=== PATIENT | female | born 1980 | race Caucasian/White ===

== ENCOUNTER 2016-08-15 20:52 | Inpatient (IN) | payer OTHER ==
--- NOTE | ~2016-08-15 | PA ---
Unit #: [id number] #: [id number] Patient: KERRY CASTRO [id number] [place] [address] [id number] I MR#: [id number] NAME: KERRY CASTRO ROOM: P183 Age: 35 Sex: F Admission Date: 08/15/2016 : 1980 Date of Assessment: 08/15/2016 Attending Physician: Sanjay Crum M.D. Admitting Physician: Sanjay Crum M.D. Primary Care Physician: Primary Care Physician No PSYCHIATRIC ASSESSMENT INFORMANTS Patient, reliable; [facility], reliable. CHIEF COMPLAINT Detox. HISTORY OF PRESENT ILLNESS Kerry is a 35-year-old woman, who reports she has been using increasing amounts of benzodiazepines up to two 8 mg of alprazolam daily and is also tested positive for methamphetamines and cocaine in the emergency room. She is an IV user of drugs and also reports she is on Suboxone maintenance. She was unable to contract for safety and was admitted for polysubstance detox. PAST PSYCHIATRIC HISTORY The patient reports she has had multiple episodes of detox in [facility]. She has no current psychiatric provider, but takes Celexa 40 mg daily from her Suboxone provider. She also takes Suboxone 16 mg daily for chemical dependence. FAMILY PSYCHIATRIC HISTORY None reported. SOCIAL HISTORY The patient has a bachelor's degree, but is unemployed. She lives with her and 2 sons and reports that she has many friends who have heroin problems. PAST MEDICAL HISTORY The patient has a history of withdrawal seizures and hepatitis C. MEDICATIONS None except as noted above. ALLERGIES Penicillin and sulfadiazine. SUBSTANCE USE HISTORY As described above. MENTAL STATUS EXAMINATION The patient presented as a mildly disheveled woman, who appeared her stated age. She stood 5 feet 5 inches tall, weighed 114 pounds. Vital Unit #: [id number] #: [id number] Patient: KERRY CASTRO signs; temperature 98.1, pulse 58, respirations 20, and blood pressure 171/97. Her speech was soft, sparse, but easily understood. Her musculoskeletal examination demonstrated mild psychomotor agitation. Her mood was anxious with a congruent affect. She was alert and fully oriented. Her memory and concentration were intact. Her thought processes were logical with no psychosis. She denied suicidal ideation, intent, or plan. Insight and judgment, fair. Fund of knowledge and abstraction, fair. ASSETS AND LIABILITIES The patient knows local resources and presents voluntarily for treatment. She has supportive family and is employable. Liabilities include lack of ability to maintain sobriety despite Suboxone maintenance. ADMITTING DIAGNOSES AXIS I: Benzodiazepine dependence with withdrawal, uncomplicated, F15.230; opioid dependence, F11.20. AXIS II: No diagnosis. AXIS III: History of hepatitis C, history of withdrawal seizures. AXIS IV: AXIS V: PSYCHIATRIC PLAN The patient was admitted and placed on the benzodiazepine detox protocol with the addition of Neurontin for possible opioid detox symptomatology. Citalopram was continued with the addition of trazodone as needed for insomnia, but her Suboxone was discontinued. She will enroll in dual diagnosis groups and activities. TREATMENT GOALS Establishment of sobriety, improvement in insight, and improvement in coping skills. DISCHARGE PLAN Follow up with [facility]. ESTIMATED LENGTH OF STAY 5 days. Dictated by... Sanjay Crum M.D. [facility]/rosie TD: 08/19/2016 03:01 JOB #: [id number] Unit #: [id number] #: [id number] Patient: KERRY CASTRO PSYCHIATRIC ASSESSMENT Page 1 of 1 X Sanjay Crum MD X PSYCHIATRIC ASSESSMENT
--- NOTE | ~2016-08-15 | DS ---
Unit #: [id number] #: [id number] Patient: KERRY CASTRO [id number] [place] [address] [id number] MR#: [id number] NAME: KERRY CASTRO ROOM: 83 Age: 35 Sex: F Admission Date: 08/15/2016 : 1980 Discharge Date: 08/19/2016 Attending Physician: Sanjay Crum M.D. Primary Care Physician: Primary Care Physician No DISCHARGE SUMMARY REASON FOR ADMISSION Kerry is a 35-year-old woman, referred by [facility] for an episode of benzodiazepine, amphetamine, and cocaine abuse. She was admitted for polysubstance detox. DIAGNOSTIC STUDIES LABORATORY RESULTS: Please see hospital chart. HOSPITAL COURSE The patient was admitted and placed on the benzodiazepine detox protocol with the addition of Neurontin for possible opioid detox symptoms. Citalopram and trazodone were continued. The Suboxone was discontinued. She did enroll in dual diagnosis groups and activities and had some episodes of agitation, but was generally cooperative. The patient was agreeable to a referral and she was referred to [facility]. She was generally calm and cooperative, and on the date of discharge, she was improved with the ability to contract for safety in the outpatient setting. DISCHARGE DIAGNOSES AXIS I: Benzodiazepine dependence; amphetamine abuse; opioid abuse; depressive disorder, not otherwise specified. AXIS II: No diagnosis. AXIS III: None. AXIS IV: AXIS V: DISCHARGE INSTRUCTIONS Follow up with chemical dependency programing of the patient's choice and primary care physician. DISCHARGE MEDICATIONS Celexa 40 mg daily for depression. CONDITION AT DISCHARGE Improved. PROGNOSIS Fair to good. DIET AND ACTIVITY Per primary care doctor. Unit #: [id number] #: [id number] Patient: KERRY CASTRO Dictated by... Sanjay Crum M.D. [facility]/modl TD: 10/08/2016 20:38 JOB #: [id number] DISCHARGE SUMMARY Page 1 of 1 X Sanjay Crum MD X DISCHARGE SUMMARY
--- NOTE | ~2016-08-15 | HP ---
Unit #: [id number] #: [id number] Patient: EUNICE CASTRO [id number] [place] [address] [id number] MR#: [id number] NAME: EUNICE CASTRO ROOM: P183 Age: 35 Sex: F Admission Date: 08/15/2016 : 1980 Attending Physician: Sanjay Crum M.D. Admitting Physician: Sanjay Crum M.D. Primary Care Physician: Primary Care Physician No HISTORY AND PHYSICAL HISTORY OF PRESENT ILLNESS Eunice is a 35 year old admitted to [facility] because of her polysubstance abuse which includes opioids, methamphetamine and benzodiazepines. PAST MEDICAL HISTORY 1. Long history of poly illicit substance abuse. 2. History of withdrawal seizures. 3. History of IV drugs. 4. Hepatitis C. PAST SURGICAL HISTORY Tubal ligation. ALLERGIES Penicillin, sulfa. SOCIAL HISTORY She denies cigarettes and alcohol. Admits to long history of poly illicit substance abuse to include IV drugs. FAMILY HISTORY Medically noncontributory. REVIEW OF SYSTEMS CONSTITUTIONAL: No fever or chills. HEENT: Denies any sore throat, ear pain or runny nose. CARDIOVASCULAR: Denies chest pain, irregular heart rhythm or palpitations. CHEST: Denies shortness of breath or cough. No hemoptysis. GASTROINTESTINAL: Denies nausea, vomiting, diarrhea or chronic constipation. ENDOCRINE: Denies history of increased thirst or urination. No recent significant weight loss or gain. GENITOURINARY: Denies dysuria, frequency, or hematuria. SKIN: Denies any rashes. HEMATOLOGIC: Denies history of increased bleeding or bruising. MUSCULOSKELETAL: Denies any hot, swollen joints. No generalized muscle pain. NEUROLOGIC: Denies problems with vision or speech. No frequent, severe headaches. No numbness, tingling or weakness in any extremities. Denies loss of bladder or bowel control. Unit #: [id number] #: [id number] Patient: EUNICE CASTRO CURRENT MEDICATIONS 1. Detox protocol 2. Celexa 40 mg daily PHYSICAL EXAMINATION GENERAL: Alert, well-nourished, in no apparent distress. VITAL SIGNS: Blood pressure 120/78, heart rate 80, respirations 16, temperature 98.6. WEIGHT: 114 pounds. HEIGHT: 5'5". SKIN: Warm and dry without rash or lesion. HEENT: Normocephalic. TMs not viewed. Oral and nasal passages clear. Conjunctivae clear. Pupils equal, round and reactive to light and accommodation. Extraocular movements intact. NECK: Supple without lymphadenopathy or thyromegaly. HEART: Regular rate and rhythm without murmur. LUNGS: Clear. ABDOMEN: Soft, nontender. : Not done. EXTREMITIES: No evidence of cyanosis, clubbing or edema. Moves all extremities without focal deficit. NEUROLOGICAL: Grossly within normal limits. Cranial Nerves: II: Visual winston are intact. III, IV AND : Extraocular movements are intact. Pupils are equal, round and reactive to light. V: Facial sensation is grossly normal. VII: Facial movements and expression are normal. VIII: Auditory acuity grossly intact. IX, X: Uvula is midline. Phonation is normal. XI: Patient shrugs shoulders and turns head normally. XII: Tongue protrudes in the midline. Sensory and Motor Function: Sensory and motor sensation is grossly normal. Motor: moves all extremities well. Coordination: Gait is normal. Deep Tendon Reflexes: Intact. IMPRESSION Psychiatric admission RECOMMENDATIONS PSYCHIATRIC: Per psychiatrist. MEDICAL: I see no contraindications to participating in facility's activities. MEDICAL PROGNOSIS Good. MEDICAL CONDITION Stable. Dictated by... Bernie Iverson P.A.-C. for Benjamin Ty/jalen Unit #: [id number] #: [id number] Patient: EUNICE CASTRO TD: 08/16/2016 21:30 JOB #: [id number] HISTORY AND PHYSICAL Page 1 of 1 X Bernie Iverson HISTORY AND PHYSICAL
--- NOTE | ~2016-08-15 | DS ---
Unit #: [id number] #: [id number] Patient: KERRY CASTRO [id number] [place] [address] [id number] I MR#: [id number] NAME: KERRY CASTRO ROOM: 83 Age: 35 Sex: F Admission Date: 08/15/2016 : 1980 Discharge Date: 08/19/2016 Attending Physician: Sanjay Crum M.D. Primary Care Physician: Primary Care Physician No DISCHARGE SUMMARY REASON FOR ADMISSION Kerry is a 35-year-old woman with increasing drug use recently including benzodiazepines, methamphetamines, and cocaine. The patient is also on Suboxone maintenance. She was admitted for detox. HOSPITAL COURSE The patient was admitted and placed on the benzodiazepine detox protocol with the addition of Neurontin for possible opioid detox symptoms. Citalopram and trazodone were continued, but Suboxone was discontinued. She enrolled in psychotherapy groups and activities, but was irritable and a poor participant, frequently demanding the re-initiation of her Suboxone, which was clearly not appropriate. On date of discharge, she was free of psychosis. DISCHARGE DIAGNOSES AXIS I: Benzodiazepine dependence with withdrawal; opioid dependence; amphetamine abuse. AXIS II: No diagnosis. AXIS III: History of hepatitis C, history of withdrawal seizures. AXIS IV: AXIS V: DISCHARGE INSTRUCTIONS Follow up with chemical dependence programing in the community. The patient was offered long-term follow up as this was not available at the time of discharge. DISCHARGE MEDICATIONS Celexa 40 mg daily for depression. CONDITION AT DISCHARGE Fair. PROGNOSIS Fair. DIET AND ACTIVITY Ad briana. Dictated by... Sanjay Crum M.D. Unit #: [id number] #: [id number] Patient: KERYR CASTRO MR/modl TD: 10/11/2016 00:22 JOB #: [id number] DISCHARGE SUMMARY Page 1 of 1 X Sanjay Crum MD X DISCHARGE SUMMARY
--- NOTE | ~2016-08-15 | HP ---
Unit #: [id number] #: [id number] Patient: EUNICE CASTRO [id number] [place] [address] [id number] I MR#: [id number] NAME: EUNICE CASTRO ROOM: P183 Age: 35 Sex: F Admission Date: 08/15/2016 : 1980 Attending Physician: Sanjay Crum M.D. Admitting Physician: Sanjay Crum M.D. Primary Care Physician: Primary Care Physician No HISTORY AND PHYSICAL HISTORY OF PRESENT ILLNESS Eunice is a 35 year old admitted to [facility] because of her polysubstance abuse which includes opioids, methamphetamine and benzodiazepines. PAST MEDICAL HISTORY 1. Long history of poly illicit substance abuse. 2. History of withdrawal seizures. 3. History of IV drugs. 4. Hepatitis C. PAST SURGICAL HISTORY Tubal ligation. ALLERGIES Penicillin, sulfa. SOCIAL HISTORY She denies cigarettes and alcohol. Admits to long history of poly illicit substance abuse to include IV drugs. FAMILY HISTORY Medically noncontributory. REVIEW OF SYSTEMS CONSTITUTIONAL: No fever or chills. HEENT: Denies any sore throat, ear pain or runny nose. CARDIOVASCULAR: Denies chest pain, irregular heart rhythm or palpitations. CHEST: Denies shortness of breath or cough. No hemoptysis. GASTROINTESTINAL: Denies nausea, vomiting, diarrhea or chronic constipation. ENDOCRINE: Denies history of increased thirst or urination. No recent significant weight loss or gain. GENITOURINARY: Denies dysuria, frequency, or hematuria. SKIN: Denies any rashes. HEMATOLOGIC: Denies history of increased bleeding or bruising. MUSCULOSKELETAL: Denies any hot, swollen joints. No generalized muscle pain. NEUROLOGIC: Denies problems with vision or speech. No frequent, severe headaches. No numbness, tingling or weakness in any extremities. Denies loss of bladder or bowel control. CURRENT MEDICATIONS 1. Detox protocol Unit #: [id number] #: [id number] Patient: EUNICE CASTRO 2. Celexa 40 mg q day PHYSICAL EXAMINATION GENERAL: Alert, well-nourished, in no apparent distress. VITAL SIGNS: Blood pressure 120/78, heart rate 80, respirations 16, temperature 98.6. WEIGHT: 114 pounds. HEIGHT: 5'5". SKIN: Warm and dry without rash or lesion. HEENT: Normocephalic. TMs not viewed. Oral and nasal passages clear. Conjunctivae clear. Pupils equal, round and reactive to light and accommodation. Extraocular movements intact. NECK: Supple without lymphadenopathy or thyromegaly. HEART: Regular rate and rhythm without murmur. LUNGS: Clear. ABDOMEN: Soft, nontender. : Not done. EXTREMITIES: No evidence of cyanosis, clubbing or edema. Moves all extremities without focal deficit. NEUROLOGICAL: Grossly within normal limits. Cranial Nerves: II: Visual winston are intact. III, IV AND : Extraocular movements are intact. Pupils are equal, round and reactive to light. V: Facial sensation is grossly normal. VII: Facial movements and expression are normal. VIII: Auditory acuity grossly intact. IX, X: Uvula is midline. Phonation is normal. XI: Patient shrugs shoulders and turns head normally. XII: Tongue protrudes in the midline. Sensory and Motor Function: Sensory and motor sensation is grossly normal. Motor: moves all extremities well. Coordination: Gait is normal. Deep Tendon Reflexes: Intact. IMPRESSION Psychiatric admission RECOMMENDATIONS PSYCHIATRIC: Per psychiatrist. MEDICAL: I see no contraindications to participating in facility's activities. MEDICAL PROGNOSIS Good. MEDICAL CONDITION Stable. Dictated by... Bhavin SpanglerASher-Gagan. for Benjamin Ty/jalen TD: 08/17/2016 01:48 JOB #: [id number] Unit #: [id number] #: [id number] Patient: EUNICE CASTRO HISTORY AND PHYSICAL Page 1 of 1 X Bernie Iverson HISTORY AND PHYSICAL
--- NOTE | ~2016-08-15 | A ---
[facility] Nutrition Therapy DATE: 08/16/16 Patient: KERRY CASTRO Physician: CINDY Address: [address] Room/Bed: [address], Zip: [place] [id number] Admit Date: 08/15/16 Date of : [birth year] Height: 5 5 Weight: [phone] NUTRITIONAL ASSESSMENT: REASON: NUTRITIONAL RISK POINT- UNINTENTIONAL WEIGHT LOSS PATIENT ADMITTED FOR POLYSUBSTANCE DETOX PMH: HEPATITIS C, WITHDRAWAL SEIZURES Anthropometrics: HT: 5'5", WT: 114#, BMI: 19, %IBW: 91 Labs: 08/16/16- GLU: 117 Meds: CELEXA, NEURONTIN, DESYREL, DETOX PROTOCOL, ATIVAN Assessment: CHART REVIEWED, EVENTS NOTED. PATIENT IS A 35 Y/O FEMALE ADMITTED FOR POLYSUBSTANCE DETOX. PATIENT IS CURRENTLY UNEMPLOYED, LIVES WITH AND 2 CHILDREN, HAS DAILY XANAX AND SUBOXONE USE, FREQUENT METH AND COCAINE USE, AND OCCASIONAL MARIJUANA USE. PATIENT STATED A POOR APPETITE WITH A 203 WEIGHT LOSS OVER LAST SEVERAL MONTHS, AND SHE HAS NOT BEEN SLEEPING. PATIENT HAS A HX OF INPATIENT CHEMICAL DEPENDENCY TREATMENT. CURRENT PSYCH MEDS MAY CAUSE WEIGHT AND APPETITE FLUCTUATIONS. THIS RD SUSPECTS WEIGHT AND AND APPETITE WILL STABILIZE, AND POSSIBLY INCREASE, FOLLOWING DETOX. THERE ARE CURRENTLY NO SKIN OR GI ISSUES NOTED ATT. PATIENT IS ON A REGULAR DIET WITH NO CAFFEINE. CURRENT PO INTAKES ARE UNAVAILABLE D/T PATIENT RECENTLY ADMITTED TO FACILITY. Dx: INADEQUATE NUTRIENT INTAKE R/T CURRENT CONDITION, DETOX AEB SELF-REPORTED WEIGHT LOSS, DECREASED APPETITE, NUTRITIONAL RISK POINT Intervention: 1. REGULAR DIET, 2. MEDS PER MD, 3. DETOX, 4. PSYCH Monitoring, Evaluation and Goals: 1. ADEQUATE PO INTAKES >50% OF MEALS 2. PREVENT, CORRECT MICRO/MACRO NUTRIENT DEFICIENCIES MONITOR: WEIGHTS, LABS, PO/FLUID INTAKES Recommendations: 1. CONTINUE REGULAR DIET TOLERATED AND OFFER SNACKS BETWEEN MEALS. IF PATIENT HAS C/O HUNGER PLEASE ORDER LARGE PORTION ENTREES AND RD WILL APPROVE. 2. ENCOURAGE ADEQUATE PO AND FLUID INTAKES 3. IF PO INTAKES FALL BELOW 50% OF MEALS PLEASE ORDER ENSURE BID TO PROMOTE ADEQUATE KCAL AND PROTEIN INTAKES. [facility] Nutrition Therapy DATE: 03/27/17 Patient: KERRY CASTRO Physician: CINDY Address: [address] [place] [address] Room/Bed: [address], Zip: [place] [address] Admit Date: 08/15/16 Date of : [birth year] Height: 5 5 Weight: [id number] TO F/U PER PROTOCOL AND PRN R/T PATIENT MILDLY COMPROMISED Respectfully, ANSELMO HORAN RD, LD Food and Nutritional Services [facility] cc: client file
[2016-08-16 12:22] LABS: BASOPHIL% 0.7 % (0-2.5); EOSINOPHIL# 0.1 X10e3 (0-0.7); EOSINOPHIL% 1.8 % (0.0-7.0); HEMATOCRIT 38.4 % (35.0-45.0); LYMPHOCYTE# 2.3 X10e3 (1.0-3.5); LYMPHOCYTE% 49.1 % (17.0-45.0); MEAN CELL VOLUME 84.9 FL (83-96); MEAN CORPUSCULAR HEMOGLOBIN 28.7 PG (28-34); MEAN CORPUSCULAR HGB CONC 33.8 g/dL (30-36); MEAN PLATELET VOLUME 7.7 FL (6.5-11.5); MONOCYTE# 0.4 X10e3 (0-1.0); MONOCYTE% 8.5 % (3.0-12.0); NEUTROPHIL# 1.8 X10e3 (1.5-7.1); NEUTROPHIL% 39.9 % (40-75); PLATELET COUNT 211 X10e3 (140-420); RED BLOOD COUNT 4.52 X10e (3.90-5.30); RED CELL DISTRIBUTION WIDTH 14.8 % (11.0-15.5); WHITE BLOOD COUNT 4.6 X10e3 (4.0-10.5)
[2016-08-16 12:26] LABS: DIFF IND NO
[2016-08-16 12:47] LABS: ALBUMIN SERUM 3.5 g/dL (3.5-5.0); BUN/CREATININE RATIO 18.33; CALCIUM SERUM 8.6 mg/dL (8.4-10.2); CREATININE SERUM 0.6 mg/dL (0.6-1.4); GLOM FILT RATE Estimated 116.4 mL/min (>60); POTASSIUM 3.9 mmol/L (3.5-5.1); PROTEIN TOTAL SERUM 6.8 g/dL (6.0-8.3)
[2016-08-16 12:52] LABS: THYROID STIMULATING HORMONE 0.72 uIU/ml (0.34-5.60)
[2016-08-16 13:01] LABS: FREE THYROXIN (T4) 1.13 ng/dL (0.58-1.64)
== END 2016-08-19 20:55 | disposition home or self-care (01) | DRG 897 ==
LOC: P1E 20:52
PROVIDERS: Psychiatry & Neurology Psychiatry
PROC: HZ2ZZZZ Detoxification Services for Substance Abuse Treatment (ICD-10-PCS; principal; 2016-08-15)
DX: F13.239 Sedative, hypnotic or anxiolytic dependence with withdrawal, unspecified (principal); F11.20 Opioid dependence, uncomplicated; B19.20 Unspecified viral hepatitis C without hepatic coma; Z88.0 Allergy status to penicillin; Z88.2 Allergy status to sulfonamides; Z56.0 Unemployment, unspecified
CPT/HCPCS: 80053; 84439; 84443; 85025; 86592

== ENCOUNTER 2016-10-07 02:00 | Inpatient (IN) | payer OTHER ==
--- NOTE | ~2016-10-07 | PN ---
Unit #: [id number] #: [id number] Patient: EUNICE CASTRO [id number] [facility] [address] [place] [address] [id number] MR#: [id number] NAME: EUNICE CASTRO ROOM: P110 Age: Sex: F Admission Date: 10/07/2016 : 1980 Attending Physician: Sanjay Crum M.D. Admitting Physician: Sanjay Crum M.D. Primary Care Physician: Primary Care Physician No [facility] PROGRESS NOTES DATE OF SERVICE 10/09/2016 DISCUSSION Eunice is still a little agitated, but much calmer than admission. She has been sleeping better with a better appetite. She is alert and oriented to person, location and time. Memory and concentration are fair. Her thought processes are less circumstantial and racing with decreased terell. ASSESSMENT Polysubstance dependence with amphetamine induced terell. PLAN Continue current treatment plan and work toward placement in a long-term care facility. Dictated by... Sanjay Crum M.D. [facility]/ana maria TD: 10/10/2016 15:25 JOB #: [id number] [facility] PROGRESS NOTES Page 1 of 1 X Sanjay Crum MD X PROGRESS NOTE
--- NOTE | ~2016-10-07 | PA ---
Unit #: [id number] #: [id number] Patient: [facility]STRO [id number] [facility] [address] [place] [address] [id number] I MR#: [id number] NAME: EUNICE CASTRO ROOM: P110 Age: 35 Sex: F Admission Date: 10/07/2016 : 1980 Date of Assessment: 10/07/2016 Attending Physician: Sanjay Crum M.D. Admitting Physician: Sanjay Crum M.D. Primary Care Physician: Primary Care Physician No PSYCHIATRIC ASSESSMENT DATE OF ASSESSMENT 10/07/2016. INFORMANTS The patient, partially reliable; patient's family, reliable; [facility], reliable. CHIEF COMPLAINT Detox. HISTORY OF PRESENT ILLNESS Eunice Castro is a 35-year-old woman with a history of chronic benzodiazepine abuse, who has apparently also been using methamphetamines. She points to several spots on her wrists where she has injected IV amphetamine including some that are infected and are currently under treatment. She had no suicidal ideation, intent, or plan, but has a history of withdrawal seizures. She was also quite agitated with significant flight of ideas and appeared to be still partially intoxicated with her amphetamines. She was transferred to [facility] for inpatient treatment. PAST PSYCHIATRIC HISTORY The patient reports multiple detox episodes in [place] and this is her second admission to [facility]. She has been on Suboxone in the past. FAMILY PSYCHIATRIC HISTORY None reported. SOCIAL HISTORY The patient has a bachelor's degree, but is currently unemployed and unable to hold work due to drug use. She lives with her and 2 sons. PAST MEDICAL HISTORY Significant for withdrawal seizures and hepatitis C. MEDICATIONS Please see MAR. ALLERGIES Penicillin and sulfadiazine. Unit #: [id number] #: [id number] Patient: EUNICE CASTRO SUBSTANCE ABUSE HISTORY As noted, the patient has extensive history of chemical dependence including opioids, benzodiazepines, and amphetamines. MENTAL STATUS EXAMINATION Eunice presented as a somewhat cachectic appearing woman who appeared older than her stated age. She was agitated, yelling, and difficult to redirect during the assessment. Her speech was pressured with racing, but generally logical speech. Mood was labile and expansive with an increased range of affect. She was alert and oriented in all spheres. Her memory and concentration were impaired and her thought processes were generally logical, but demonstrated some circumstantiality. She had no suicidal ideation, intent, or plan. Insight and judgment, fair. Fund of knowledge and abstraction, fair. ASSETS AND LIABILITIES The patient has supportive family and presents voluntarily for treatment. Liabilities include chronic drug use and lack of sobriety. ADMITTING DIAGNOSES AXIS I: 1. Benzodiazepine dependence with withdrawal, F15.230. 2. 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 AXIS II: No diagnosis. AXIS III: History of withdrawal seizures, history of hepatitis C, current infected injection site. AXIS IV: AXIS V: PSYCHIATRIC PLAN The patient was admitted and placed on the benzodiazepine detox protocol. Her antibiotic was continued from the outpatient setting together with citalopram for mood problems. Her Suboxone will be discontinued. She will enroll in dual diagnosis groups and activities. TREATMENT GOALS Establishment of sobriety, resolution of substance-induced terell, improvement in insight, and improvement in coping skills. DISCHARGE PLAN Follow up with [facility] and primary care physician. ESTIMATED LENGTH OF STAY 5 days. Dictated by... Sanjay Crum M.D. [facility]/rosie TD: 10/09/2016 00:51 JOB #: [id number] Unit #: [id number] #: [id number] Patient: EUNICE CASTRO PSYCHIATRIC ASSESSMENT Page 1 of 1 X Sanjay Crum MD X PSYCHIATRIC ASSESSMENT
--- NOTE | ~2016-10-07 | A ---
[facility] Nutrition Therapy DATE: 10/08/16 Patient: KERRY JOSEKENNETH Physician: CINDY Address: [address] [facility] Room/Bed: [address], Zip: [place] [address] Admit Date: 10/07/16 Date of : [birth year] Height: 5 6 Weight: [phone] NUTRITIONAL ASSESSMENT: REASON: LOW BMI (18.1), NUTRITIONAL RISK POINT- UNINTENTIONAL WEIGHT LOSS PATIENT ADMITTED FOR POLYSUBSTANCE ABUSE PMH: HEP C, WITHDRAWAL SEIZURES Anthropometrics: HT: 5'6", WT: 112#, BMI: 18.1, %IBW: 86 Labs: NO NUTRITION LABS AVAILABLE Meds: CELEXA, SEROQUEL, DETOX PROTOCOL Assessment: PATIENT IS A 35 Y/O FEMALE ADMITTED FOR POLYSUBSTANCE ABUSE. PATIENT IS CURRENTLY UNEMPLOYED, LIVES WITH AND 2 SONS, HAS DAILY USE OF ETOH, XANAX, AND SUBOXONE, AND RECENT METH USE. PATIENT RELAPSED 3 WEEKS AFER LAST D/T IN JULY. PER NEEDS ASSESSMENT PATIENT STATED A POOR APPETITE WITH A 19# WEIGHT LOSS IN DAYS, AND HAD NOT BEEN SLEEPING. WEIGHT HX PER MEDITECH SHOWS A 2# WEIGHT LOSS X 2 MONTHS. NURSING REPORTS GOOD PO INTAKES. RD ASSESSED 08/16/16- NOTE REVIEWED. PATIENT HAS MULTIPLE ABSCESSES ALONG R-ARM AND WRIST AND IS ON ABX. SINCE ADMIT PATIENT HAS BEEN HAVING ESCALATED BEHAVIORS, AGRESSION, AND DRUG INDUCED PSYCHOSIS. PATIENT IS ON A REGULAR VEGETARIAN DIET, LARGE PORTION FRUITS AND VEGETABLES, AND CHOCOLATE ENSURE TID. Dx: INADEQUATE NUTRIENT INTAKE R/T CURRENT CONDITION, DRUG USE AEB LOW BMI, <90% IBW, NUTRITIONAL RISK POINT Intervention: REGULAR VEGETARIAN DIET, LARGE PORTION FRUITS AND VEGETABLES, SUPPLEMENTS, MEDS PER MD, DETOX, PSYCH Monitoring, Evaluation and Goals: 1. ADEQUATE PO INTAKES >50% OF MEALS 2. PREVENT, CORRECT MICRO/MACRO NUTRIENT DEFICIENCIES 3. PROMOTE A STEADY WEIGHT GAIN TOWARDS A HEALTHY BMI OF 19-25 MONITOR: WEIGHTS, LABS, PO/FLUID INTAKES Recommendations: 1. CONTINUE REGULAR VEGETARIAN DIET TOLERATED WITH LARGE PORTION FRUITS AND VEGETABLES, AND ENSURE TID 2. ENCOURAGE ADEQUATE PO AND FLUID INTAKES [facility] Nutrition Therapy DATE: 10/08/16 Patient: KERRY CALIKOWSKI Physician: CINDY Address: [address] [facility] Room/Bed: [address], Zip: [place] [address] Admit Date: 10/07/16 Date of : [birth year] Height: 5 6 Weight: 111 [id number] 3. OBTAIN WEIGHTS ROUTINELY (EVERY 3-4 DAYS) RD TO F/U PER PROTOCOL AND PRN R/T PATIENT MILDLY COMPROMISED Respectfully, ANSELMO HORAN RD, LD Food and Nutritional Services [facility] cc: client file
--- NOTE | ~2016-10-07 | HP ---
Unit #: [id number] #: [id number] Patient: KERRY CASTRO [id number] [place] [address] [id number] MR#: [id number] NAME: KERRY CASTRO ROOM: P110 Age: 35 Sex: F Admission Date: 10/07/2016 : 1980 Attending Physician: Sanjay Crum M.D. Admitting Physician: Sanjay Crum M.D. Primary Care Physician: Primary Care Physician No HISTORY AND PHYSICAL HISTORY OF PRESENT ILLNESS Kerry is a 35 year old, admitted to [address] [place] [address] because of her continued polysubstance abuse to include IV drugs. PAST MEDICAL HISTORY 1. Long history of poly-illicit substance abuse. 2. History of withdrawal seizures. 3. Hepatitis C. 4. History of IV drugs. PAST SURGICAL HISTORY Tubal ligation. ALLERGIES Penicillin, sulfa. SOCIAL HISTORY She denies cigarettes and alcohol and admits to long history of poly-illicit substance abuse to include IV drugs. FAMILY HISTORY Medically noncontributory. REVIEW OF SYSTEMS CONSTITUTIONAL: No fever or chills. HEENT: Denies any sore throat, ear pain or runny nose. CARDIOVASCULAR: Denies chest pain, irregular heart rhythm or palpitations. CHEST: Denies shortness of breath or cough. No hemoptysis. GASTROINTESTINAL: Denies nausea, vomiting, diarrhea or chronic constipation. ENDOCRINE: Denies history of increased thirst or urination. No recent significant weight loss or gain. GENITOURINARY: Denies dysuria, frequency, or hematuria. SKIN: Denies any rashes. HEMATOLOGIC: Denies history of increased bleeding or bruising. MUSCULOSKELETAL: Denies any hot, swollen joints. No generalized muscle pain. NEUROLOGIC: Denies problems with vision or speech. No frequent, severe headaches. No numbness, tingling or weakness in any extremities. Denies loss of bladder or bowel control. CURRENT MEDICATIONS 1. Detox protocol Unit #: [id number] #: [id number] Patient: KERRY CASTRO 2. Suboxone 8/2 one and one half tablets sublingually daily 3. Celexa 40 mg day 4. Milk of magnesia p.r.n. 5. Maalox p.r.n. 6. Tylenol p.r.n. PHYSICAL EXAMINATION GENERAL: Alert, thin, no apparent distress. VITAL SIGNS: Blood pressure 132/94, heart rate 100, respirations 16, and temperature 98.6. WEIGHT: 112 pounds. HEIGHT: 5 feet 6 inches. SKIN: Warm and dry without rash. She has multiple abscesses along her right hand and arm. HEENT: Normocephalic. TMs not viewed. Oral and nasal passages clear. Conjunctivae clear. PERRLA. EOMs intact. NECK: Supple without lymphadenopathy or thyromegaly. HEART: Regular rate and rhythm without murmur. LUNGS: Clear. ABDOMEN: Soft, nontender. : Not done. EXTREMITIES: No evidence of cyanosis, clubbing or edema. Moves all without focal deficit. NEUROLOGICAL: Grossly within normal limits. Cranial Nerves: II: Visual winston are intact. III, IV AND : Extraocular movements are intact. Pupils are equal, round and reactive to light. V: Facial sensation is grossly normal. VII: Facial movements and expression are normal. VIII: Auditory acuity grossly intact. IX, X: Uvula is midline. Phonation is normal. XI: Patient shrugs shoulders and turns head normally. XII: Tongue protrudes in the midline. Sensory and Motor Function: Sensory and motor sensation is grossly normal. Motor: moves all extremities well. Coordination: Gait is normal. Deep Tendon Reflexes: Intact. IMPRESSION 1. Psychiatric admission. 2. Long history of IV drug use. 3. Abscesses along IV drug sites. RECOMMENDATIONS Psychiatric, per psychiatrist. MEDICAL 1. I see no contraindications to participating in facility's activities. 2. Warm compresses. 3. Start Cleocin 300 mg one p.o. t.i.d. x7 days MEDICAL PROGNOSIS Good. MEDICAL CONDITION Stable. Dictated by... Bernie Iverson P.A.-C. for Unit #: [id number] #: [id number] Patient: KERRY CASTRO M.D. JJA/lam TD: 10/08/2016 06:22 JOB #: [id number] HISTORY AND PHYSICAL Page 1 of 1 X Bernie Iverson X HISTORY AND PHYSICAL
--- NOTE | ~2016-10-07 | PN ---
Unit #: [id number] #: [id number] Patient: EUNICE CASTRO [id number] [facility] [address] [place] [address] [id number] MR#: [id number] NAME: EUNICE CASTRO ROOM: [facility] Age: 35 Sex: F Admission Date: 10/07/2016 : 1980 Attending Physician: Sanjay Crum M.D. Admitting Physician: Sanjya Crum M.D. Primary Care Physician: Milady Primary Care Physician [facility] PROGRESS NOTES DATE 10/11/2016 DISCUSSION Eunice shows some improvement today. Her detox is better. Her mood is better with a brighter affect and much less irritability. Her substance abuse, psych manic symptoms appear to have completely resolved. She has some suicidal ideation today. ASSESSMENT Polysubstance dependence with substance abuse manic disorder. PLAN I scheduled the patient for discharge today but was informed later in the day that transportation will not be available and done until tomorrow. We will therefore, discharge her tomorrow with followup in the community. Dictated by... Benjamin Carranza/maryann TD: 10/14/2016 07:50 JOB #: [id number] [facility] PROGRESS NOTES Page 1 of 1 X Sanjay Crum MD PROGRESS NOTE
--- NOTE | ~2016-10-07 | DS ---
Unit #: [id number] #: [id number] Patient: EUNICE CASTRO [id number] [place] [address] [id number] MR#: [id number] NAME: EUNICE CASTRO ROOM: P110 Age: 35 Sex: F Admission Date: 10/07/2016 : 1980 Discharge Date: 10/12/2016 Attending Physician: Sanjay Crum M.D. Primary Care Physician: Primary Care Physician No DISCHARGE SUMMARY REASON FOR ADMISSION Eunice is a 35-year-old woman with a history of chronic benzodiazepine use, has also been using amphetamines. She had been injecting these and had several infected spots on her wrist, which had been started on antibiotics. She was significantly agitated with flight of ideas and appeared partially still intoxicated with amphetamines at the time of admission. She was admitted for detox and further stabilization. DIAGNOSTIC STUDIES LABORATORY RESULTS: Please see referring hospital records. HOSPITAL COURSE The patient was admitted and placed on benzodiazepine detox protocol, Neurontin was also provided for opioid detox symptomatology, and citalopram was continued for mood problems. She had what appeared to be a medication induced agitation that rapidly resolved and the patient slept heavily for about 36 hours on and off after admission. She tolerated other treatments well and her mood gradually improved to the point where she could contract for safety in the outpatient setting and apparently cleared from her amphetamine use. DISCHARGE DIAGNOSES AXIS I: Benzodiazepine dependence with withdrawal. Amphetamine abuse with amphetamine induced terell. AXIS II: No diagnosis. AXIS III: History of withdrawal seizures, history of hepatitis C, and a current infected injection site. AXIS IV: AXIS V: DISCHARGE INSTRUCTIONS Follow up with chemical dependence programming and primary care physician in [place], [place]. DISCHARGE MEDICATIONS The patient is to continue on Seroquel 100 mg at bedtime for depression, Celexa 40 mg daily for depression, and Cleocin 300 mg t.i.d. until gone for infected injection site, Suboxone was discontinued during this admission. CONDITION AT DISCHARGE Unit #: [id number] #: [id number] Patient: EUNICE CASTRO Fair. PROGNOSIS Fair. DIET AND ACTIVITY Per primary care physician. Dictated by... Sanjay Crum M.D. [facility]/jorjel TD: 10/12/2016 23:45 JOB #: [id number] DISCHARGE SUMMARY Page 1 of 1 X Sanjay Crum MD DISCHARGE SUMMARY
--- NOTE | ~2016-10-07 | PN ---
Unit #: [id number] #: [id number] Patient: EUNICE CASTRO [id number] [facility] [address] [place] [address] [id number] MR#: [id number] NAME: EUNICE CASTRO ROOM: [facility] Age: 35 Sex: F Admission Date: 10/07/2016 : 1980 Attending Physician: Sanjay Crum M.D. Admitting Physician: Sanjay Crum M.D. Primary Care Physician: Primary Care Physician Milady PU[facility] NOTES DATE OF SERVICE 10/08/2016 DISCUSSION Eunice is "catching up on her sleep" this morning and had significant agitation yesterday, including some hyper sexuality inappropriate behavior on the unit and eventually she had to be moved from [address] [place] [address] [place] [address] for increased security and to separate her from other hypersexual patients. This morning her speech is slurred but easily understood. She is sleeping heavily and difficult to awaken for an interview but staff has reported that her agitation and substance abuse manic symptoms appear to be improving. ASSESSMENT Opiate dependence. Amphetamine abuse. Substance-induced manic disorder. PLAN Continue current treatment plan and precautions. Dictated by... Sanjay Crum M.D. [facility]/ana maria TD: 10/10/2016 10:14 JOB #: [id number] ALEXIS [facility] NOTES Page 1 of 1 X Sanjay Crum MD PROGRESS NOTE
== END 2016-10-12 18:19 | disposition home or self-care (01) | DRG 897 ==
LOC: P1S 06:50 → P2S 06:50 → P1S 18:29
PROC: HZ2ZZZZ Detoxification Services for Substance Abuse Treatment (ICD-10-PCS; principal; 2016-10-07)
DX: F13.239 Sedative, hypnotic or anxiolytic dependence with withdrawal, unspecified (principal); F15.10 Other stimulant abuse, uncomplicated; F15.14 Other stimulant abuse with stimulant-induced mood disorder; B19.20 Unspecified viral hepatitis C without hepatic coma
CPT/HCPCS: 86592; J3230